=== PATIENT | male | born 1980 | race Caucasian/White ===

== ENCOUNTER 2021-11-03 16:43 | Emergency (ER) | payer OTHER ==
[~2021-11-03] VITALS: Ht 182.9 cm; Wt 99.8 kg
== END 2021-11-03 18:06 | disposition home or self-care (01) ==
LOC: ER 16:43
DX: S61.511A Laceration without foreign body of right wrist, initial encounter (principal); W25.XXXA Contact with sharp glass, initial encounter
CPT/HCPCS: 90714